=== PATIENT | female | born 1945 | race Caucasian/White ===

== ENCOUNTER → 2024-10-24 | Outpatient (REF) | payer MEDICARE ==
[~2024-10-24] MED LIST: DIATRIZOATE MEGL/DIATRIZOA SOD 30 ML BTL PO ONE; IOPAMIDOL 370 MG/ML 100 ML INFUS..BTL INJ ONE
[2024-10-24 08:42] LABS: CREATININE, SERUM 0.86 mg/dL (0.57-1.11)
== END ==
LOC: CT 07:35
PROVIDERS: ATTEND Internal Medicine Gastroenterology
DX: I10 Essential (primary) hypertension (principal); K57.30 Diverticulosis of large intestine without perforation or abscess without bleeding; K29.70 Gastritis, unspecified, without bleeding; K44.9 Diaphragmatic hernia without obstruction or gangrene; K64.8 Other hemorrhoids; K62.89 Other specified diseases of anus and rectum; Z68.39 Body mass index [BMI] 39.0-39.9, adult; Z71.3 Dietary counseling and surveillance; Z86.0100 Personal history of colon polyps, unspecified
CPT/HCPCS: 36415; 74177; 82565; 84520; Q9963; Q9967